=== PATIENT | female | born 1985 | race African-American/Black ===

== ENCOUNTER 2018-10-11 05:04 | Inpatient (IN) | payer MEDICAID ==
[2018-10-10 13:05] LABS: ABSOLUTE EOSINOPHILS # (AUTO) 0.1 10^3/uL (0.0-0.6); ABSOLUTE LYMPHOCYTES (AUTO) 2.5 10^3/uL (0.5-4.7); ABSOLUTE MONOCYTES (AUTO) 0.6 10^3/uL (0.1-1.4); ABSOLUTE NEUT (AUTO) 5.3 10^3/uL (1.7-8.2); BASOPHILS % (AUTO) 0.6 % (0-2); EOSINOPHILS % (AUTO) 1.4 % (0-6); HEMATOCRIT 32.3 % (36.0-47.0); HEMOGLOBIN 10.9 g/dL (12.0-15.5); LYMPHOCYTES % (AUTO) 29.3 % (13-45); MEAN CORPUSCULAR HEMOGLOBIN 30.1 pg (27.0-33.4); MEAN CORPUSCULAR HGB CONC 33.6 g/dL (32.0-36.0); MEAN CORPUSCULAR VOLUME 90 fl (80-97); MONOCYTES % (AUTO) 6.7 % (3-13); RED BLOOD COUNT 3.61 10^6/uL (3.72-5.28); RED CELL DISTRIBUTION WIDTH 13.3 % (11.5-14.0); TOTAL CELLS COUNTED % (AUTO) 100 %; WHITE BLOOD COUNT 8.6 10^3/uL (4.0-10.5)
[2018-10-10 13:12] LABS: APPEARANCE,URINE SLIGHTLY-CLOUDY; BILIRUBIN,URINE NEGATIVE (NEGATIVE); COLOR,URINE YELLOW; GLUCOSE, URINE NEGATIVE (NEGATIVE); KETONES,URINE NEGATIVE (NEGATIVE); LEUKOCYTE ESTERASE,URINE MODERATE (NEGATIVE); NITRITE,URINE NEGATIVE (NEGATIVE); PROTEIN,URINE NEGATIVE (NEGATIVE); URINE SPECIFIC GRAVITY 1.018; UROBILINOGEN,URINE NEGATIVE mg/dL (<2.0)
[2018-10-10 13:31] LABS: URINE AMPHETAMINES SCREEN NEGATIVE; URINE BARBITURATES SCREEN NEGATIVE; URINE BENZODIAZEPINES SCREEN NEGATIVE; URINE COCAINE SCREEN NEGATIVE; URINE MARIJUANA (THC) SCREEN NEGATIVE; URINE METHADONE SCREEN NEGATIVE; URINE PHENCYCLIDINE SCREEN NEGATIVE
[2018-10-10 13:36] LABS: PLATELET COUNT 211 10^3/uL (150-450)
[~2018-10-11 05:04] MED LIST: CEFAZOLIN 2 GM/D5W RTU 2 GM/50 ML RTUPB IV PRN; CEFAZOLIN SODIUM 2 GM in DEXTROSE 5%-WATER 100 ML IV PRN; LACTATED RINGERS 1000 ML IV PRN
[2018-10-11] MEDS ORDERED: CEFAZOLIN 2 GM/D5W RTU 2 GM/50 ML RTUPB IV ONE (05:37)
[2018-10-11] MEDS ORDERED: RINGERS SOLUTION,LACTATED 1,000 ML IV PRN ×2 (06:49→09:17)
[2018-10-11] MEDS ORDERED: MIDAZOLAM 2 MG/2 ML INJ ONE (07:34)
[2018-10-11] MEDS ORDERED: OXYTOCIN 10 UNIT/ML VIAL ONE (07:34)
[2018-10-11] MEDS ORDERED: BUPIVACAINE HCL/DEX-WATER/PF 15 MG/2 ML AMPULE ONE (07:34)
[2018-10-11] MEDS ORDERED: FENTANYL CITRATE INJ/PF 100 MCG/2 ML AMPUL ONE (07:34)
[2018-10-11] MEDS ORDERED: EPHEDRINE SULFATE INJ 50 MG/1 ML AMPULE ONE (07:35)
[2018-10-11] MEDS ORDERED: ONDANSETRON HCL INJ/PF 4 MG/2 ML SDV ONE (07:35)
[2018-10-11] MEDS ORDERED: MORPHINE SULFATE 10 MG/ML INJ IV PRN (08:24)
[2018-10-11] MEDS ORDERED: FENTANYL CITRATE INJ/PF 100 MCG/2 ML AMPUL IV PRN ×3 (08:24)
[2018-10-11] MEDS ORDERED: OXYCODONE-ACETAMINOPHEN 5-325 MG TABLET PO PRN ×4 (08:24→09:17)
[2018-10-11] MEDS ORDERED: DIPHENHYDRAMINE HCL 50 MG/ML VIAL IV PRN (08:24)
[2018-10-11] MEDS ORDERED: MEPERIDINE HCL/PF INJ 25 MG/1 ML DISP.SYRIN IV PRN (08:24)
[2018-10-11] MEDS ORDERED: PROMETHAZINE HCL INJ 25 MG/1 ML VIAL IV PRN ×4 (08:24→10:43)
--- NOTE | 2018-10-11 09:08 | PDOC DELIVERY SUMMARY ---
Delivery Summary - Maternal Hx : V Hx # Term Pregnancies: 3 Hx Total # of Abortions (Sponateous & Elective): 1 GAVIN: 10/18/18 Gestational Age: 39 Risk Factors: Gestational Diabetes Ruptured Membranes: AROM Time of Rupture: 08:09 Fluids: Clear - Delivery Presentation: Vertex Heart Rate Monitoring: Done Pre-Operatively Support Person Present: Yes - AT BEDSIDE Location: OR : Scheduled Placenta: Within Normal Limits Placenta Description: Normal-appearing Number of Vessels (Cord): 3 Nuchal Cord: No Delivery of Placenta Date: 10/11/18 Delivery of Placenta Time: 08:11 Estimated Blood Loss: 800 ml Delivery Quantitative Blood Loss (QBL): 960 - Medications Type of Anesthesia:: Spinal - Infant Assess and Care Baby 1 Male Delivery of Date: 10/11/18 Delivery of Infant Time: 08:10 at 1 minute: 8 at 5 minutes: 9 Preprinted Number On Band: [id number] Skin to Skin: Yes Skin to Skin (Mins): 3 To Nursery At: 08:22 Mode of Transport: Bassinet Infant Delivery Weight: 3,625 Delivery Length: 18.5 in - Delivery Personnel [employer] Operator: JAYLYN CARDOSO Nursery RN: SIRISHA BOB MD: MARBELLA MENDEZ
[2018-10-11] MEDS ORDERED: ACETAMINOPHEN 1,000 MG/100 ML RTUPB IV ONE (09:14)
[2018-10-11] MEDS ORDERED: KETOROLAC TROMETHAMINE INJ/PF 30 MG/1 ML SDV ONE (09:14)
[2018-10-11] MEDS ORDERED: DIPH/PERTUSS(ACELL)/TETANUS VAC/PF 0.5 ML SYR (>=10YO) IM PRN ×2 (09:17→10:43)
[2018-10-11] MEDS ORDERED: ACETAMINOPHEN 325 MG TABLET PO PRN ×2 (09:17→10:43)
[2018-10-11] MEDS ORDERED: OXYTOCIN/NORMAL SALINE 20 UNIT/1,000 ML RTUINJ IV PRN (09:17)
[2018-10-11] MEDS ORDERED: SIMETHICONE 80 MG TAB.CHEW PO PRN ×2 (09:17→10:43)
--- NOTE | 2018-10-11 09:17 | Operative Report ---
Operative Report DATE OF SURGERY: 10/11/18 PREOPERATIVE DIAGNOSIS: 1. Uterine at 39 weeks. 2. Previous C- section x3. 3. GBS negative. 4. Gestational diabetes (on insulin). 5. Desires permanent sterilization. 6. Rh+. 7. Rubella immune. 8. Anemia POSTOPERATIVE DIAGNOSIS: Same OPERATION: 1. Repeat section. 2. Bilateral tubal interruption with Filshie clips SURGEON: MARBELLA PETERSON ANESTHESIA: Spinal TISSUE REMOVED OR ALTERED: Placenta COMPLICATIONS: None ESTIMATED BLOOD LOSS: 800 ml INTRAOPERATIVE FINDINGS: Normal-appearing placenta; normal uterus, bilateral tubes and ovaries; male in a cephalic position; Apgars 8 at 1, 9 at 5 with a weight of 8 pounds 0 ounces PROCEDURE: The patient was taken to the operating room where spinal anesthesia was obtained and found to be adequate. She was then prepped and draped in the normal sterile fashion and placed in the dorsal supine position with a leftward tilt. A Pfannenstiel skin incision was then made and carried through to the underlying layers of the fascia with the scalpel. The fascia was incised in the midline and the incision extended laterally with the Pearson scissors. The superior aspect of the fascial incision was then grasped with Paul clamps elevated and the underlying rectus muscles dissected off [both bluntly and sharply]. Attention was then turned to the inferior aspect of the fascial incision which in a similar fashion was grasped, tented up with Paul clamps, and the rectus muscles dissected off [both bluntly and sharply]. The rectus muscles were then in the midline and the peritoneum at the amount identified and entered [bluntly]. The peritoneal incision was then extended superiorly and inferiorly with good visualization of the bladder. The bladder blade was inserted and the vesicouterine peritoneum identified grasped with Sammarinese pickups and entered sharply with the Metzenbaum scissors. This incision was then extended laterally with the Metzenbaum scissors and a bladder flap created digitally. The bladder blade was then reinserted and the lower uterine segment incised in a transverse fashion with the scalpel. The uterine incision was then extended bluntly. The bladder blade was removed and the infant's head was delivered from cephalic presentation atraumatically. The nose and mouth were suctioned and the cord doubly clamped and cut. And the infant was handed off to waiting pediatricians. The placenta was then delivered spontaneously and the uterus exteriorized and cleared of all clots and debris. The uterine incision was then repaired with 0 Vicryl in a running locked fashion. A second layer, using 0 Chromic, used to obtain hemostasis via imbrication of the initial layer. The bladder flap was then repaired with 3-0 Vicryl in a running fashion. Attention was then turned to the patient's sterilization. The right fallopian tube was held with a [place] and followed down to the fimbria. A Filshie clip was then placed in the midportion of the tube. Hemostasis was noted. The same procedure was performed on the left fallopian tube and hemostasis was also noted. The uterus was returned to the patient's abdomen and Interceed was placed overlying the uterine incision, as well as a piece placed vertically on the anterior surface of the uterus, to prevent adhesions. The gutters were cleared of all clots and debris. All operative sites were noted to be hemostatic. The fascia was reapproximated with 0 Vicryl in a running fashion from each lateral edge to the midline. The subcutaneous fat layer wa then closed in an interrupted fashion with 3-0 vicryl. The skin was closed with 4-0 Monocryl in a running, subcuticular fashion. The patient tolerated the procedure well. Sponge, lap, needle and instrument counts are correct x 2. 2 g of Ancef were given prior to skin incision. The patient was taken to the recovery area awake and in stable condition.
--- NOTE | 2018-10-11 09:23 | Operative Report ---
Operative Report DATE OF SURGERY: 10/11/18 PREOPERATIVE DIAGNOSIS: 1. Uterine at 39 weeks. 2. Previous C- section x3. 3. GBS negative. 4. Gestational diabetes (on insulin). 5. Desires permanent sterilization. 6. Rh+. 7. Rubella immune. 8. Anemia POSTOPERATIVE DIAGNOSIS: Same OPERATION: 1. Repeat section. 2. Bilateral tubal interruption with Filshie clips SURGEON: MARBELLA PETERSON ANESTHESIA: Spinal TISSUE REMOVED OR ALTERED: Placenta COMPLICATIONS: none ESTIMATED BLOOD LOSS: 800 ml INTRAOPERATIVE FINDINGS: Normal-appearing placenta; normal uterus, bilateral tubes and ovaries; male in a cephalic position; Apgars 8 at 1, 9 at 5 with a weight of 8 pounds 0 ounces PROCEDURE: 1. Repeat section 2. Fallopian tube interruption with Filshie clips
[2018-10-11] MEDS ORDERED: ACETAMINOPHEN 1,000 MG/100 ML RTUPB IV PRN (09:29)
[2018-10-11] MEDS ORDERED: OXYTOCIN/NORMAL SALINE 20 UNIT/1,000 ML RTUINJ ONE (10:01)
[2018-10-11] MEDS ORDERED: HYDROMORPHONE HCL INJ/PF 2 MG/ML AMPULE ONE (10:43)
[2018-10-11] MEDS ORDERED: MEASLES,MUMPS&RUBELLA VACC/PF 0.5 ML VIAL SUBCUT PRN (10:43)
[2018-10-11] MEDS ORDERED: HYDROMORPHONE HCL INJ/PF 2 MG/ML AMPULE IV PRN (10:43)
[2018-10-11] MEDS: PRENATAL VITAMIN W DHA CAPSULE PO SCH (11:49)
[2018-10-11] MEDS: DOCUSATE SODIUM 100 MG CAPSULE PO SCH ×2 (11:49→18:36)
[2018-10-11] MEDS: KETOROLAC TROMETHAMINE INJ/PF 30 MG/1 ML SDV IV SCH (18:37)
[2018-10-12] MEDS: KETOROLAC TROMETHAMINE INJ/PF 30 MG/1 ML SDV IV SCH ×2 (02:15→09:47)
[2018-10-12 07:02] LABS: MEAN CORPUSCULAR HEMOGLOBIN 30.2 pg (27.0-33.4); MEAN CORPUSCULAR HGB CONC 34.1 g/dL (32.0-36.0); MEAN CORPUSCULAR VOLUME 89 fl (80-97); PLATELET COUNT 175 10^3/uL (150-450); RED BLOOD COUNT 2.83 10^6/uL (3.72-5.28); RED CELL DISTRIBUTION WIDTH 13.1 % (11.5-14.0); WHITE BLOOD COUNT 8.7 10^3/uL (4.0-10.5)
[2018-10-12 07:03] LABS: HEMOGLOBIN 8.5 g/dL (12.0-15.5)
[2018-10-12] MEDS: PRENATAL VITAMIN W DHA CAPSULE PO SCH (09:47)
[2018-10-12] MEDS: DOCUSATE SODIUM 100 MG CAPSULE PO SCH ×2 (09:47→17:29)
--- NOTE | 2018-10-12 09:50 | PDOC PROGRESS REPORT ---
Subjective-OB Progress Note for:: 10/12/18 Physical Exam (OB) Vital Signs: Temp Pulse Resp BP Pulse Ox 98.5 F 68 16 111/56 L 98 10/12/18 03:04 10/12/18 03:04 10/12/18 03:04 10/12/18 03:04 10/12/18 03:04 Intake & Output 10/11/18 10/12/18 10/13/18 06:59 06:59 06:59 Intake Total 2000 Output Total 1000 Balance 1000 Weight 93.2 kg - PIH/Pre-Eclampsia Clonus: Negative Headache: Absent Epigastric Pain: No Visual Changes: No - Dressing Removed: No - opsite Incision: Dressing - Lochia Lochia Amount: Small 10-25 ml Lochia Color: Rubra/Red - Abdomen Description: Tender, Soft, Round Hernia Present: No Bowel Sounds: Normoactive Flatus Presence: Present Stool: No Fundal Description: Firm, Midline Fundal Height: u/u - u/2 Objective-Diagnostic Laboratory: 10/12/18 06:40 10/12/18 06:40 WBC 8.7 RBC 2.83 L Hgb 8.5 L D Hct 25.0 L MCV 89 MCH 30.2 MCHC 34.1 RDW 13.1 Plt Count 175
[2018-10-12] MEDS: IBUPROFEN 800 MG TABLET PO SCH ×2 (14:31→21:07)
[2018-10-13] MEDS: IBUPROFEN 800 MG TABLET PO SCH ×2 (03:32→10:42)
--- NOTE | 2018-10-13 09:52 | PDOC PROGRESS REPORT ---
Subjective-OB Progress Note for:: 10/13/18 Subjective: Ready for discharge. Physical Exam (OB) Vital Signs: Temp Pulse Resp BP Pulse Ox 98.3 F 81 16 121/78 97 10/13/18 03:39 10/13/18 03:39 10/13/18 03:39 10/13/18 03:39 10/13/18 03:39 Intake & Output 10/12/18 10/13/18 10/14/18 06:59 06:59 06:59 Intake Total 2000 780 Output Total 1000 Balance 1000 780 - PIH/Pre-Eclampsia DTR's: 2 + Clonus: Negative Headache: Absent Epigastric Pain: No Visual Changes: No - Dressing Removed: No Incision: Dressing Closure Type: Surgical Glue - Lochia Lochia Amount: Scant < 10 ml Lochia Color: Rubra/Red - Abdomen Description: Tender, Soft Hernia Present: No Bowel Sounds: Normoactive Flatus Presence: Present Stool: No Fundal Description: Firm, Midline Fundal Height: u/3 - u/4 Objective-Diagnostic Laboratory: 10/12/18 06:40
--- NOTE | 2018-10-13 10:03 | PDOC DISCHARGE SUMMARY ---
Final Diagnosis Discharge Date: 10/13/18 - Final Diagnosis (1) Encounter for sterilization Is this a current diagnosis for this admission?: Yes (2) Gestational diabetes mellitus Is this a current diagnosis for this admission?: Yes (3) Obesity Is this a current diagnosis for this admission?: Yes (4) S/P repeat low transverse Is this a current diagnosis for this admission?: Yes Discharge Data - Discharge Medication Prescriptions: Oxycodone HCl/Acetaminophen [Percocet 5-325 mg Tablet] 1 tab PO Q4HP PRN #20 tablet PRN Reason: Docusate Sodium [Colace 100 mg Capsule] 100 mg PO BID #30 capsule Ferrous Sulfate 325 mg PO BID #60 tablet. Ibuprofen [Motrin 800 mg Tablet] 800 mg PO Q6A #30 tablet Home Medications: Pnv No.103/Folic/Om3s/Fish Oil [ Gummies] 1 each PO 10/10/18 Docusate Sodium [Colace 100 mg Capsule] 100 mg PO BID #30 capsule 10/13/18 Ferrous Sulfate 325 mg PO BID #60 tablet. 10/13/18 Ibuprofen [Motrin 800 mg Tablet] 800 mg PO Q6A #30 tablet 10/13/18 Oxycodone HCl/Acetaminophen [Percocet 5-325 mg Tablet] 1 tab PO Q4HP PRN #20 tablet 10/13/18 Gestational Age: 39 wks Reason(s) for Admission: Ceasarean Section-Repeat Intrapartum Procedure(s): : Low Cervical, Transverse - Data Baby 1 Male at 1 minute: 8 at 5 minutes: 9 Weight: 3625 kg Home with Mother: Yes Complications: No - Diagnosis Test Laboratory: Temp Pulse Resp BP Pulse Ox 98.3 F 81 16 121/78 97 10/13/18 03:39 10/13/18 03:39 10/13/18 03:39 10/13/18 03:39 10/13/18 03:39 10/10/18 10/10/18 10/12/18 11:43 11:53 06:40 RBC 3.61 L 2.83 L Hgb 10.9 L 8.5 L D Hct 32.3 L 25.0 L Urine Opiates Screen NEGATIVE - Discharge information/Instructions Discharge Activity: Activity As Tolerated, Balance Activity w/Rest, No Lifting Over 10 Pounds, No Lifting/Push/Pulling, Non-Ambulatory Child, Pelvic Rest, Slowly Increase Activity, No tub bath Discharge Diet: Regular Disposition: HOME, SELF-CARE Follow up with: [facility] in: 1, Weeks
[2018-10-13] MEDS: PRENATAL VITAMIN W DHA CAPSULE PO SCH (10:41)
[2018-10-13] MEDS: DOCUSATE SODIUM 100 MG CAPSULE PO SCH (10:41)
[2018-10-13 11:20] VITALS: BP 121/78
[2018-10-13] MEDS ORDERED: DIPH/PERTUSS(ACELL)/TETANUS VAC/PF 0.5 ML SYR (>=10YO) IM PRN (11:43)
== END 2018-10-13 12:00 | disposition home or self-care (01) | DRG 785 ==
LOC: 2S 05:04
PROVIDERS: ADMIT Obstetrics & Gynecology; ATTEND Obstetrics & Gynecology
PROC: 0UL70CZ Occlusion of Bilateral Fallopian Tubes with Extraluminal Device, Open Approach (ICD-10-PCS; 2018-10-11)
PROC: 4A1HXCZ Monitoring of Products of Conception, Cardiac Rate, External Approach (ICD-10-PCS; 2018-10-11)
PROC: 10D00Z1 Extraction of Products of Conception, Low, Open Approach (ICD-10-PCS; principal; 2018-10-11 07:45)
DX: O24.424 Gestational diabetes mellitus in childbirth, insulin controlled (principal); Z30.2 Encounter for sterilization; O34.211 Maternal care for low transverse scar from previous cesarean delivery; O99.214 Obesity complicating childbirth; E66.9 Obesity, unspecified; Z87.891 Personal history of nicotine dependence; Z83.3 Family history of diabetes mellitus; Z80.1 Family history of malignant neoplasm of trachea, bronchus and lung; Z80.8 Family history of malignant neoplasm of other organs or systems; Z82.49 Family history of ischemic heart disease and other diseases of the circulatory system; Z3A.39 39 weeks gestation of pregnancy; Z37.0 Single live birth
CPT/HCPCS: 1961; 36415; 59025; 80307; 81001; 82962; 85025; 85027; 86850; 86900; 86901; 90715; 94799; C1765; J0131; J0690; J1170; J1885; J2250; J2405; J2550; J2590; J3010; J3490; J7120

== ENCOUNTER 2019-02-04 17:24 | Emergency (ER) | payer OTHER, MEDICAID ==
[2019-02-04] MEDS ORDERED: IBUPROFEN 800 MG TABLET PO ONE (18:09)
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
[2019-02-04 20:12] VITALS: BP 132/86
== END 2019-02-04 20:10 | disposition home or self-care (01) ==
LOC: ER 17:24
DX: M25.532 Pain in left wrist (principal)
CPT/HCPCS: 99283